=== PATIENT | male | born 1970 | race Caucasian/White ===

== ENCOUNTER 2023-12-18 11:58 | Emergency (ER) | payer BC ==
[2023-12-18 12:12] VITALS: TEMP 98.9
--- NOTE | 2023-12-18 12:22 | ERPHSYRPT ---
- History of Present Illness Time Seen by Provider: 12/18/23 12:22 Historian: patient Exam Limitations: no limitations Patient Subjective Stated Complaint: Vomiting Triage Nursing Assessment: Patient ambulated back to ED and transferred self to bed. Patient A+O X 3. Patient's skin pink, warm and dry. Patient complains of N/V and diarrhea that started last night. Patient states he is unable to keep anything down. Patient also complains of headache and lower back pain 6/10. Patient complains of occasional body aches with chills. Physician History: This is an obese 53-year-old white male patient who presents to the emergency department by private vehicle escorted by his spouse with a complaint of multiple episodes of vomiting and diarrhea that began last evening and have persisted throughout the morning today. He also has associated low back pain, headache, body aches and chills. Patient has a history of chronic sciatica and did get a chiropractic treatment yesterday during the day. His symptoms began yesterday evening. Patient states that abdominal distention occurred first followed by nausea then multiple episodes of vomiting and diarrhea symptoms. He has never had him like this before. He has not had any abdominal surgeries in the past. Patient has a history of hypertension and hyperlipidemia. Patient does not have complaints of chest pain or shortness of breath. Timing/Duration: yesterday Activities at Onset: none Quality: aching, cramping, tightness Abdominal Pain Onset Location: generalized abdomen Pain Radiation: no radiation Severity of Pain-Max: mild (To moderate) Severity of Pain-Current: mild (To moderate) Modifying Factors: Improves With: vomiting Associated Symptoms: diarrhea, headache, loss of appetite, nausea, vomiting, weakness, No chest pain, No neck pain, No shortness of breath Previous symptoms: no prior history, no recent treatment Allergies/Adverse Reactions: No Known Drug Allergies Allergy (Unverified 12/18/23 12:03) Home Medications: Atorvastatin Calcium [Lipitor] 1 tab PO HS 12/18/23 [History] Ubidecarenone/Vit E Acet [Co Q-10 100 mg Softgel] 1 tab PO HS 12/18/23 [History] lisinopriL [Lisinopril] 1 tab PO HS 12/18/23 [History] Hx Influenza Vaccination/Date Given: No Hx Pneumococcal Vaccination/Date Given: No Immunizations Up to Date: Yes Travel Risk - International Travel Have you traveled outside of the country in past 3 weeks: No - Emerging Infectious Disease Are you exhibiting symptoms associated with any current EIDs: Yes Symptoms: Diarrhea, Headaches/Body Aches/, Vomitting - Review of Systems Constitutional: Chills, Weakness Eyes: No Symptoms Ears, Nose, & Throat: No Symptoms Respiratory: No Symptoms Cardiac: No Symptoms Abdominal/Gastrointestinal: Abdominal Pain, Nausea, Vomiting, Diarrhea, Appetite Changes Genitourinary Symptoms: No Symptoms Musculoskeletal: Arthralgias, Myalgias Skin: No Symptoms Neurological: No Symptoms Psychological: No Symptoms Endocrine: No Symptoms Hematologic/Lymphatic: No Symptoms Immunological/Allergic: No Symptoms All Other Systems: Reviewed and Negative - Past Medical History Pertinent Past Medical History: Yes Neurological History: No Pertinent History ENT History: No Pertinent History Cardiac History: High Cholesterol, Hypertension Respiratory History: No Pertinent History Endocrine Medical History: No Pertinent History Musculoskeletal History: Other GI Medical History: No Pertinent History History: No Pertinent History Psycho-Social History: No Pertinent History Male Reproductive Disorders: No Pertinent History Other Medical History: Sciatica - Past Surgical History Past Surgical History: Yes Neuro Surgical History: No Pertinent History Cardiac: No Pertinent History Respiratory: No Pertinent History Gastrointestinal: No Pertinent History Genitourinary: No Pertinent History Musculoskeletal: No Pertinent History Male Surgical History: No Pertinent History - Social History Smoking Status: Never smoker Exposure to second hand smoke: No Drug Use: none - Social Determinants of Health Will the patient participate in the screening: Yes Do you worry about a steady place to live?: No Do you have any problems with any of the following?: No known problems In the past 12 months,have you had to go without utilities?: No Transportation Issues: No Has anyone in your support network made you feel unsafe?: No Have you or anyone in your house had to go without enough: No - Nursing Vital Signs Nursing Vital Signs: Initial Vital Signs Pulse Rate 62 12/18/23 12:05 Respiratory Rate 20 12/18/23 12:05 Blood Pressure 143/86 12/18/23 12:05 O2 Sat by Pulse Oximetry 93 L 12/18/23 12:05 Pain Scale Pain Intensity 5 - Physical Exam General Appearance: no apparent distress, alert, anxiety, obese Eye Exam: PERRL/EOMI, eyes nml inspection Ears, Nose, Throat Exam: normal ENT inspection, moist mucous membranes Neck Exam: normal inspection, non-tender, supple, full range of motion Respiratory Exam: normal breath sounds, lungs clear, airway intact, No chest tenderness, No respiratory distress Cardiovascular Exam: tachycardia (Mild) Gastrointestinal/Abdomen Exam: soft, normal bowel sounds, tenderness (Generalized, mild to palpation), guarding (Generalized, mild to palpation) Rectal Exam: not done Back Exam: normal inspection, normal range of motion, No CVA tenderness, No vertebral tenderness Extremity Exam: normal inspection, normal range of motion, pelvis stable Neurologic Exam: alert, oriented x 3, cooperative, larriman helper II-XII nml as tested, nml cerebellar function, nml station & gait, sensation nml Skin Exam: normal color, warm, dry Lymphatic Exam: No adenopathy SpO2 Interpretation: borderline oxygenation SpO2: 93 O2 Delivery: Room Air - Course Nursing assessment & vital signs reviewed: Yes Ordered Tests: Active Orders 24 hr Category Date Time Status IV Insertion STAT Care 12/18/23 12:26 Active ABDOMEN AND PELVIS W/0 CONTRAS [CT] Stat Exams 12/18/23 12:27 Completed AMYLASE Stat Lab 12/18/23 12:35 Completed BLOOD CULTURE Stat Lab 12/18/23 12:47 Received CBC W DIFF Stat Lab 12/18/23 12:35 Completed CMP Stat Lab 12/18/23 12:35 Completed LIPASE Stat Lab 12/18/23 12:35 Completed Lactic Acid Stat Lab 12/18/23 12:26 Completed MAGNESIUM Stat Lab 12/18/23 12:35 Completed MONO SCREEN Stat Lab 12/18/23 12:35 Completed Manual Differential NC Stat Lab 12/18/23 12:35 Completed UA W/RFX UR CULTURE Stat Lab 12/18/23 13:45 Completed Medication Summary Discontinued Medications Generic Name Dose Route Start Last Admin Trade Name Freq PRN Reason Stop Dose Admin Sodium Chloride 1,000 mls @ 999 mls/hr 12/18/23 12:26 12/18/23 13:42 Sodium Chloride 0.9% 1000 Ml IV 12/18/23 13:26 Infused .Q1H1M STA Infusion Sodium Chloride Confirm 12/18/23 12:38 Sodium Chloride 0.9% 1000 Ml Administered 12/18/23 12:39 Dose 1,000 mls @ ud .ROUTE .STK-MED ONE Ondansetron HCl 4 mg 12/18/23 12:26 12/18/23 12:41 Ondansetron Hcl 4 Mg/2 Ml Vial IV 12/18/23 12:27 4 mg STAT ONE Administration Ondansetron HCl Confirm 12/18/23 12:38 Ondansetron Hcl 4 Mg/2 Ml Vial Administered 12/18/23 12:39 Dose 4 mg .ROUTE .STK-MED ONE Pantoprazole Sodium 40 mg 12/18/23 12:26 12/18/23 12:41 Pantoprazole 40 Mg Vial IV 12/18/23 12:27 40 mg STAT ONE Administration Pantoprazole Sodium Confirm 12/18/23 12:38 Pantoprazole 40 Mg Vial Administered 12/18/23 12:39 Dose 40 mg IV .STK-MED ONE Lab/Rad Data: Laboratory Result Diagrams 12/18/23 12:35 12/18/23 12:35 Laboratory Results 12/18/23 12/18/23 12/18/23 Range/Units 13:45 12:47 12:35 WBC (4.23-9.07) x10^3/uL RBC (4.63-6.08) x10^6/uL Hgb (13.7-17.5) g/dL Hct (40.1-51.0) % MCV (79.0-92.2) fL MCH (25.7-32.2) pg MCHC (32.3-36.5) g/dL RDW (11.6-14.4) % Plt Count (163-337) x10^3/uL MPV (9.4-12.4) fL Segmented Neutrophils (34.0-67.9) % Lymphocytes (Manual) (21.8-53.1) % Monocytes (Manual) (5.3-12.2) % Basophils (Manual) (0.2-1.2) % Platelet Estimate (NORMAL) RBC Morphology Sodium (135-145) mmol/L Potassium (3.5-5.1) mmol/L Chloride (98-107) mmol/L Carbon Dioxide (22-30) mmol/L Anion Gap (5-15) MEQ/L BUN (9-20) mg/dL Creatinine (0.66-1.25) mg/dL Estimated GFR ML/MIN Glucose (74-106) mg/dL Lactic Acid (0.4-2.0) Calcium (8.4-10.2) mg/dL Magnesium (1.6-2.3) mg/dL Total Bilirubin (0.2-1.3) mg/dL AST (17-59) U/L ALT (0-50) U/L Alkaline Phosphatase (38-126) U/L Serum Total Protein (6.3-8.2) g/dL Albumin (3.5-5.0) g/dL Amylase (30-110) U/L Lipase (23-300) U/L Urine Color Yellow (Yellow) Urine Appearance Clear (Clear) Urine pH 5.5 (4.6-8.0) Ur Specific Edward 1.025 (1.005-1.030) Urine Protein Negative (Negative) Urine Glucose (UA) Negative (Negative) mg/dL Urine Ketones Negative (Negative) Urine Blood Negative (Negative) Urine Nitrite Negative (Negative) Urine Bilirubin Negative (Negative) Urine Urobilinogen 0.2 (0.2) mg/dL Ur Leukocyte Esterase Negative (Negative) U Hyaline Cast (Auto) NONE SEEN (0-2) /LPF Urine Microscopic RBC 0-2 (0-5) /HPF Urine Microscopic WBC 0-2 (0-5) /HPF Ur Epithelial Cells None Seen (None Seen) /HPF Urine Bacteria None Seen (None Seen) /HPF Urine Culture Reflexed NO (NO) Monoscreen NEGATIVE (NEGATIVE) Influenza Type A Ag NEGATIVE (NEGATIVE) Influenza Type B Ag NEGATIVE (NEGATIVE) RSV (PCR) NEGATIVE (NEGATIVE) SARS-CoV-2 (PCR) NEGATIVE (NEGATIVE) 12/18/23 12/18/23 12/18/23 Range/Units 12:35 12:35 12:26 WBC 12.6 H (4.23-9.07) x10^3/uL RBC 5.00 (4.63-6.08) x10^6/uL Hgb 15.3 (13.7-17.5) g/dL Hct 45.0 (40.1-51.0) % MCV 90.0 (79.0-92.2) fL MCH 30.6 (25.7-32.2) pg MCHC 34.0 (32.3-36.5) g/dL RDW 12.3 (11.6-14.4) % Plt Count 238 (163-337) x10^3/uL MPV 9.0 L (9.4-12.4) fL Segmented Neutrophils 93 H (34.0-67.9) % Lymphocytes (Manual) 1 L (21.8-53.1) % Monocytes (Manual) 5 L (5.3-12.2) % Basophils (Manual) 1 (0.2-1.2) % Platelet Estimate NORMAL (NORMAL) RBC Morphology NORMAL Sodium 135 (135-145) mmol/L Potassium 3.9 (3.5-5.1) mmol/L Chloride 100 (98-107) mmol/L Carbon Dioxide 23 (22-30) mmol/L Anion Gap 16.4 H (5-15) MEQ/L BUN 18 (9-20) mg/dL Creatinine 0.85 (0.66-1.25) mg/dL Estimated GFR 103.3 ML/MIN Glucose 116 H (74-106) mg/dL Lactic Acid 2.3 H (0.4-2.0) Calcium 9.2 (8.4-10.2) mg/dL Magnesium 1.6 (1.6-2.3) mg/dL Total Bilirubin 1.00 (0.2-1.3) mg/dL AST 32 (17-59) U/L ALT 34 (0-50) U/L Alkaline Phosphatase 73 (38-126) U/L Serum Total Protein 7.7 (6.3-8.2) g/dL Albumin 4.5 (3.5-5.0) g/dL Amylase 63 (30-110) U/L Lipase 43 (23-300) U/L Urine Color (Yellow) Urine Appearance (Clear) Urine pH (4.6-8.0) Ur Specific Edward (1.005-1.030) Urine Protein (Negative) Urine Glucose (UA) (Negative) mg/dL Urine Ketones (Negative) Urine Blood (Negative) Urine Nitrite (Negative) Urine Bilirubin (Negative) Urine Urobilinogen (0.2) mg/dL Ur Leukocyte Esterase (Negative) U Hyaline Cast (Auto) (0-2) /LPF Urine Microscopic RBC (0-5) /HPF Urine Microscopic WBC (0-5) /HPF Ur Epithelial Cells (None Seen) /HPF Urine Bacteria (None Seen) /HPF Urine Culture Reflexed (NO) Monoscreen (NEGATIVE) Influenza Type A Ag (NEGATIVE) Influenza Type B Ag (NEGATIVE) RSV (PCR) (NEGATIVE) SARS-CoV-2 (PCR) (NEGATIVE) - Progress Progress: improved, pain not gone completely, re-examined Progress Note: 12/18/23 13:18 My medical decision making and the assignment of moderate complexity to this patient's medical issue is based on review of the patient's past medical history, review of the patient's medication list, review the patient drug allergy list, history present illness and physical findings on examination. The workup includes placement of intravenous line, infusion of normal saline solution, infusion of Protonix, infusion of Zofran intravenously, CBC, CMP, magnesium level, amylase, lipase, urinalysis, viral swabs, monotest, CT scan of the abdomen pelvis without contrast. Differential diagnosis includes but is not limited to pancreatitis, viral i llness, mononucleosis, colitis, diverticulitis, food poisoning 12/18/23 14:12 I interpreted the resulted laboratory data results. The urinalysis and the remainder of viral studies and strep test are pending. The monotest is negative. The patient does have a slightly elevated lactic acid level at 2.3. CT scan of the abdomen pelvis without contrast was interpreted by the radiologist and I reviewed the impression. The impression states chronic findings including noncontrasted stomach and bowel loops that are nonobstructed. There is multiple hepatic cysts, colonic diverticulosis, degenerative spondylosis. Normal appendix. No free air and no free fluid. 12/18/23 14:39 I interpreted the urinalysis and the viral studies as well as a strep test. There are no acute, emergent findings on the study results. Counseled pt/family regarding: lab results, diagnosis, rad results Medical Desision Making - Independent Historian Additional History obtained from: Spouse - Diagnostic Testing Diagnostic test were ordered, analyzed, and reviewed by me: Yes Radiological Interpretation: Reviewed by me, Teleradiologist Report - Risk of complications The pt has a mod risk of morbidity or mortality based on: Need for prescription drug management - Departure Departure Disposition: Home Clinical Impression: Vomiting and diarrhea, Viral illness Condition: Stable Critical Care Time: No Referrals: CLIFFORD TIPTON, FOUNDRY MELT SUPERVISOR [Primary Care Provider] - Follow up/PCP as directed Additional Instructions: Drink plenty of clear liquids over the next 12 hours. Do not advance your diet until you are tolerating clear liquids well. Avoid fatty greasy spicy foods. Take your medications as prescribed. Call your primary care provider today, 12/18/2023 to make arranges for follow-up appointment for further evaluation and management Prescriptions: Ondansetron ODT 4 MG [Zofran Odt 4 mg] 4 mg PO Q6H PRN PRN #10 tablet PRN Reason: Vomiting
[2023-12-18] MEDS ORDERED: Zofran 4 MG/2 ML VIAL ONE ×2 (12:38→15:12)
[2023-12-18] MEDS ORDERED: PROTONIX 40 MG IV IV ONE (12:38)
[2023-12-18] MEDS ORDERED: Sodium Chloride 0.9% 1000 ML 1,000 ML ONE (12:38)
[2023-12-18] MEDS: PROTONIX 40 MG IV IV ONE (12:41)
[2023-12-18] MEDS: Sodium Chloride 0.9% 1000 ML 1,000 ML IV STA (12:41)
[2023-12-18] MEDS: Zofran 4 MG/2 ML VIAL IV ONE ×2 (12:41→15:13)
[2023-12-18 13:16] LABS: Hemoglobin 15.3 g/dL (13.7-17.5); Mean Corpuscular Hemoglobin 30.6 pg (25.7-32.2); Platelet Count 238 x10^3/uL (163-337); Red Cell Distribution Width 12.3 % (11.6-14.4); White Blood Count 12.6 x10^3/uL (4.23-9.07)
[2023-12-18 13:33] LABS: ALBUMIN 4.5 g/dL (3.5-5.0); ANION GAP 16.4 MEQ/L (5-15); Calcium 9.2 mg/dL (8.4-10.2); Creatinine 1 0.85 mg/dL (0.66-1.25); EST GLOMERULAR FILTRATION RATE 103.3 ML/MIN; MAGNESIUM 1.6 mg/dL (1.6-2.3); Potassium 3.9 mmol/L (3.5-5.1); Total Protein 7.7 g/dL (6.3-8.2)
[2023-12-18 13:54] LABS: INFLUENZA A NEGATIVE (NEGATIVE); INFLUENZA B NEGATIVE (NEGATIVE); RESPIRATORY SYNCTIAL VIRUS NEGATIVE (NEGATIVE); SARS-CoV-2 Xpert Express NEGATIVE (NEGATIVE)
--- NOTE | 2023-12-18 14:07 | XRAY ---
Indication: Vomiting and diarrhea. Multiple contiguous axial images obtained through the abdomen and pelvis without contrast. Comparison: None Lung bases demonstrates minimal bibasilar subsegmental atelectasis/scarring. No infiltrate or effusion. Heart not enlarged. Noncontrasted stomach and bowel loops appear nonobstructed with normal appendix. Scattered descending and sigmoid diverticulosis without diverticulitis. Multiple hepatic cysts, largest right lobe measuring 4.2 cm. No free fluid/air. Remaining gallbladder, pancreas, spleen, adrenal glands, kidneys, ureters, bladder, and aorta are unremarkable for noncontrast exam. Osseous structures intact with minimal/mild degenerative changes throughout spine, greatest at lumbosacral junction. Impression: 1. Chronic findings including multiple hepatic cysts, colonic diverticulosis, and degenerative spondylosis. 2. Remaining CT abdomen/pelvis without contrast exam is negative.
[2023-12-18 14:10] LABS: Basophil 1 % (0.2-1.2); Lymphocytes 1 % (21.8-53.1); Monocyte 5 % (5.3-12.2); Neutrophils 93 % (34.0-67.9); Total Cells Counted 100
[2023-12-18 14:11] LABS: Platelet Estimate NORMAL (NORMAL)
[2023-12-18 14:19] LABS: Appearance Clear (Clear); Bacteria None Seen /HPF (None Seen); Bilirubin Negative (Negative); Blood Negative (Negative); Epithelial Cells None Seen /HPF (None Seen); Glucose, Urine Negative (Negative); Hyaline Casts NONE SEEN /LPF (0-2); Ketones Negative (Negative); Leukocyte Esterase Negative (Negative); Nitrite Negative (Negative); Ph 5.5 (4.6-8.0); Protein,Urine Dip Negative (Negative); RBC 0-2 /HPF (0-5); Specific Gravity 1.025 (1.005-1.030); Urobilinogen 0.2 mg/dL (0.2); WBC 0-2 /HPF (0-5)
[2023-12-18] MEDS ORDERED: MORPHINE SULFATE 4 MG INJ ONE (15:12)
[2023-12-18] MEDS: MORPHINE SULFATE 4 MG INJ IV ONE (15:13)
[2023-12-18 15:31] VITALS: BP 119/78; PULSE 100; RESP 16; O2SAT 93
== END 2023-12-18 15:40 | disposition home or self-care (01) ==
LOC: ED 11:58
DX: B34.9 Viral infection, unspecified (principal); R11.2 Nausea with vomiting, unspecified; R19.7 Diarrhea, unspecified; M54.50 Low back pain, unspecified; R51.9 Headache, unspecified; M79.10 Myalgia, unspecified site; I10 Essential (primary) hypertension; E78.5 Hyperlipidemia, unspecified; Z79.899 Other long term (current) drug therapy
CPT/HCPCS: 0241U; 36000; 36415; 74176; 80053; 81001; 82150; 83605; 83690; 83735; 85025; 86308; 87040; 96360; 96374; 96375; 96376; 99284; J2270; J2405